=== PATIENT | male | born 1940 | race Caucasian/White ===

== ENCOUNTER 2020-08-11 10:11 | Outpatient (CLI) | payer MEDICARE | END 2020-08-11 10:12 | disposition home or self-care (01) | LOC: CSHMRI 10:11 | PROVIDERS: ATTEND Urology | DX: R97.20 Elevated prostate specific antigen [PSA] (principal); N42.9 Disorder of prostate, unspecified; K62.9 Disease of anus and rectum, unspecified; R59.0 Localized enlarged lymph nodes; M89.9 Disorder of bone, unspecified | CPT/HCPCS: 72197 ==